=== PATIENT | male | born 1955 | race Caucasian/White ===

== ENCOUNTER 2024-03-13 12:37 | Outpatient (CLI) | payer MEDICARE, SELFPAY ==
[2024-03-13 13:03] LABS: Basophils Percent Auto 0.4 % (0.2-1.2); Eosinophils Absolute Auto 0.2 K/mm3 (0-0.3); Eosinophils Percent Auto 2.1 % (0-4.4); Hematocrit 41.2 % (42.0-52.0); Hemoglobin 13.9 g/dL (14.0-18.0); Immature Granulocyte Absolute 0.06 K/mm3 (0.00-0.031); Immature Granulocyte Percent A 0.8 % (0-0.5); Lymphocytes Absolute Auto 2.08 K/mm3 (0.9-3.2); Lymphocytes Percent Auto 27.6 % (18.3-44.2); Mean Corpuscular HGB Conc 33.7 g/dl (32-36); Mean Corpuscular Hemoglobin 29.6 pg (26-34); Mean Corpuscular Volume 87.7 fl (80-100); Mean Platelet Volume 10.6 fl (7.4-10.4); Monocytes Absolute Auto 0.7 K/mm3 (0.1-0.6); Monocytes Percent Auto 8.9 % (2.6-8.5); Neutrophils Absolute Auto 4.5 K/mm3 (1.3-6.7); Neutrophils Percent Auto 60.2 % (45.5-73.1); Platelet Count Result 170 k/mm3 (150-375); Red Cell Distribution Width 13.5 % (11.5-14.5); White Blood Count 7.5 K/mm3 (4.5-10.0)
[2024-03-13 13:41] LABS: Iron 55 ug/dL (49-181)
[2024-03-13 13:45] LABS: Alanine Aminotransferase 28 U/L (6-50); Albumin Level 4.4 g/dL (3.5-5.1); Alkaline Phosphatase 64 U/L (38-126); Anion Gap 9 mmol/L (4-12); Aspartate Amino Transferase 41 U/L (17-59); Bilirubin,Total 0.8 mg/dL (0.2-1.3); Blood Urea Nitrogen 24 mg/dL (9-20); Calcium 9.5 mg/dL (8.4-10.2); Carbon Dioxide 26 mmol/L (22-30); Chloride 104 mmol/L (98-107); Estimated Glomerular Filt Rate 47; Glucose 104 mg/dL (65-110); Potassium 3.6 mmol/L (3.4-5.0); Sodium 139 mmol/L (137-145)
[2024-03-13 13:51] LABS: Percent Iron Saturation 15 % (20-50)
[2024-03-13 14:51] LABS: Vitamin B12 > 1000.0 pg/mL (239-931)
[2024-03-13 17:45] LABS: Folic Acid > 20.0 ng/mL (2.76->20)
[2024-03-16 13:33] LABS: Kappa\\Lambda Light Chains 1.08 (0.26-1.65); Lambda Light Chain 16.1 mg/L (5.7-26.3)
[2024-03-17 00:13] LABS: Platelet Antibody, Direct NEGATIVE (NEGATIVE)
== END 2024-03-13 12:38 | disposition home or self-care (01) ==
LOC: ANHLAB 12:40
PROVIDERS: Internal Medicine; Visit Provider Internal Medicine Hematology & Oncology
DX: D64.9 Anemia, unspecified (principal); D69.59 Other secondary thrombocytopenia
CPT/HCPCS: 36415; 80053; 82607; 82728; 82746; 83540; 83550; 83883; 84443; 85025; 86023

== ENCOUNTER 2024-04-03 07:13 | Outpatient (CLI) | payer MEDICARE, SELFPAY ==
--- NOTE | ~2024-04-03 | US_ITS ---
COMPLETE ABDOMINAL ULTRASOUND Ordering provider: Margy Cobb MD History: . OTHER SECONDARY THROMBOCYTOPENIA . Comparison: None. FINDINGS: LIVER: Normal size and echotexture. No focal hepatic lesions or perihepatic fluid collections are keon ntified. Normal flow of the portal vein. GALLBLADDER: Status post cholecystectomy. BILIARY DUCTS: No evidence for intra or extrahepatic biliary dilation. Common bile duct measures 5.4 mm in diameter which is within normal limits. PANCREAS: Poorly visualized. SPLEEN: Normal size, echotexture and contour and measures 13.9 cm in length. KIDNEYS: Right measures 11.3x 4.9x 5.1 cm in length and the left 12.6x 5.9x 4.5 cm in length. There i s no evidence for hydronephrosis, solid renal mass, renal calculi or perinephric fluid collections. N o renal cysts. Lobulated outline of the right kidney is noted. Prominent pyramids seen on the left si de. UPPER ABDOMINAL AORTA: Normal in caliber. IVC: Patent. FREE FLUID: None. IMPRESSION: Status post cholecystectomy. Otherwise, Unremarkable complete ultrasound of the abdomen. Reviewed, dictated and finalized at location A. ON PICTURE NARRATOR
== END 2024-04-03 07:14 | disposition home or self-care (01) ==
PROVIDERS: Visit Provider Internal Medicine
DX: Z90.49 Acquired absence of other specified parts of digestive tract (principal); D69.59 Other secondary thrombocytopenia
CPT/HCPCS: 76700

== ENCOUNTER 2025-02-05 11:14 | Outpatient (CLI) | payer MEDICARE, SELFPAY ==
--- OUTSIDE RECORDS SUMMARY | 2025-01-26 03:51 | XMS_ITS | Continuity of Care Document ---
Author Organization [facility] Address [address] [place] [address] Phone Care Team Providers Care Emotional Support Teacher Name Role Phone Sirisha DEE, FACC, Sudhir Unavailable Unavail able Allergies, Adverse Reactions, Alerts Substance Reaction Status Criticality prednisone Unknown(severe) Active No Informati on Medications Medication Instructions Dosage Effective Dates (start - stop) Status Comments ezetimibe 10 mg tablet Take 1 tablet by mouth every day - Active rosuvastatin 20 mg tablet TAKE 1 TABLET BY MOUTH EVERY DAY - Active nitroglycerin 0.[address] 1 tablet by sublingual route at 1st sign of attack; may repeat every 5 minutes up to 3 tabs; if norelief seek medical help 0.4 MG - Active olmesartan 40 mg-hydrochlorothiazide 25 mg tablet - Active tramadol 50 mg tablet TAKE 1 TO 2 TABLETS BY MOUTH WITH OTC TYLENOL 3 TIMES DAILY FOR SEVERE PAIN CONTROL - Active cetirizine 10 mg tablet TAKE 1 TABLET BY MOUTH EVERY DAY - Active isosorbide mononitrate ER 30 mg tablet,extended release 24 hr TAKE 1 TABLET BY MOUTH TWICE A DAY - Active prazosin 2 mg capsule - Acti ve prazosin 5 mg capsule - Acti ve trazodone 50 mg tablet TAKE 1 TABLET BY MOUTH EVERY DAY AT BEDTIME NEEDED FOR 90 DAYS - Active ipratropium 0.5 mg-albuterol 3 mg (2.5 mg base)/3 mL nebulization soln INHALE THE CONTENTS OF 1 VIAL VIA NEBULIZER 4 TIMES A DAY - Active montelukast 10 mg tablet - A ctive diltiazem 30 mg tablet - Act kwame fluoxetine 40 mg capsule TAKE 2 CAPSULES BY MOUTH ONCE DAILY - Active metformin ER 500 mg tablet,extended release 24 hr - Active Jardiance 10 mg tablet TAKE 1 TABLET BY MOUTH EVERY DAY - Active meloxicam 7.5 mg tablet TAKE 2 TABLETS B Y MOUTH X1 DAY, THEN 1 TABLET DAILY FOR PAIN CONTROL - Active methylprednisolone 4 mg tablets in a dose pack TAKE 6 TABLETS ON DAY 1 DIRECTED ON PACKAGE AND DECREASE BY 1 TAB EACH DAY FOR A TOTAL OF 6 DAYS - Active topiramate 25 mg tablet TAKE 1 TABLET BY MOUTH EVERYDAY AT BEDTIME - Active benzonatate 100 mg capsule TAKE 1 CAPSULE BY MOUTH THREE TIMES A DAY NEEDED FOR 15 DAY(S) - Active cefdinir 300 mg capsule - Ac tive levofloxacin 500 mg tablet - Active Breztri Aerosphere 160 mcg-9mcg-4.8mcg/actuatio n HFA aerosol inhaler INHALE 2 PUFFS BY MOUTH TWICE DAILY. BREATH SLOWLY AND DEEPLY - Active furosemide 20 mg tablet - Ac tive albuterol sulfate HFA 90 mcg/actuation aerosol inhaler INHALE 2 PUFFS BY MOUTH SLOWLY AND DEEPLY EVERY 4 HOURS BY MOUTH NEEDED FOR SHORTNESS OF BREATH - Active diltiazem CD 120 mg capsule,extended release 24 hr - Active omeprazole 40 mg capsule,delayed release - Active ezetimibe 10 mg tablet - No Longer Active Procedures Procedure Date REM MNTR PHYSIOL ALIA DEV REM MNTR PHYSIOL ALIA DEV REM PHYSIOL MNTR 20 MIN MO REM PHYSIOL MNTR EA ADDL 20 REM PHYSIOL MNTR 20 MIN MO Not Seen Complex e/m visit add on OFFICE/OUTPATIENT VISIT, EST ELECTROCARDIOGRAM, COMPLETE Advance Directives Directive Yes / No Effective Date File Name No Information Encounters Encounter Description Practice Location Reason(s) For Visit Diagnoses Date Provider Providers Copied on Encounter [facility], [address] [place] [address], [id number] , tel: [phone] SL Donaldson No Information Jan- 5 [facility]. [facility] [address], [place], [place], [id number] , . tel: [phone] [facility], [address] [place] [address], [id number] , tel: [phone] [facility] Donalds[facility] No Information 5 [facility]. [facility] [address], [place], [place], [id number] , . tel: [phone] REM MNTR PHYSIOL ALIA DEV [facility], [address] [place] [address], [id number] , tel: [phone] [facility] Essential (primary) hypertension 5 [facility]. [facility] [address] [place], [id number] , . tel: [phone] Referring Provider: Sudhir [facility]id, [facility], [place], [address] . tel:[phone] sulting Provider: Sudhir Del Cid, [facility], [place], [address] . tel:[phone] REM MNTR PHYSIOL ALIA DEV [facility], [address] [place] [address], [id number] , tel: [phone] [facility] Essential (primary) hypertension 5 [facility]. [address] [place], [place], [id number] , . tel: [phone] Referring Provider: Sudhir Del Cid, [address], [place], [address] . tel:[phone] krishnan Provider: Sudhir Del Cid, [address], [place], [address] . tel:[phone] REM PHYSIOL MNTR EA ADDL 20 [facility], [address] [place], [place], [id number] , tel: [phone] [facility] Essential (primary) hypertension [facility]. [address], [place], [place], [id number] , . tel: [phone] Referring Provider: Sudhir Del Cid, [address], [place], [address] . tel:[phone] krishnan Provider: Sudhir Del Cid, [address] , [place], [address] . tel:[phone] [facility], [address] [place], [place], [id number] , tel: [phone] [facility] No Information [facility]. [address] , [place], [place], [id number] , . tel: [phone] Referring Provider: Miguel Balbuena, [address] [facility], [place], [address]. tel:[phone] OFFICE/OUTPA TIENT VISIT, [facility], [address] [place], [place], [id number] , tel: [phone] [facility] Follow Up of 6 mo (chief complaint) Occlusion and stenosis of bilateral carotid arteriesEssential (primary) hypertensionHyperlipi demia, unspecifiedSleep apnea, unspecifiedShortness of breathCoronary artery spasm [facility]. [address], [place], [place], [id number] , [place]. tel: [phone] Referring Provider: Miguel Balbuena, [address], [place], [address]. tel:[phone] [facility], [address] [place] [address], [id number] , tel: [phone] [facility] No Information [facility]. [address] , [place], [place], [id number] , . tel: [phone] [facility], [address] [place] [address], [id number] , tel: [phone] [facility] CADElevated Lipoprotein(a)Dizzine ssAngina pectoris with documented spasmStenosis of bilateral carotid arteriesEncounter for screening for cardiovascular disordersPanniculitis affecting cervical regions of neck and backShortness of breathArthrodesis statusAbnormal glucoseLocalized edemaEncounter for preprocedural cardiovascular examSleep apneaMigraineOther chest painAnkylosing spondylitis in spineHypertensionHype rlipidemia [facility]. [address] [place], [place], [id number] , . tel: [phone] Family History Family Member Type Diagnosis Age At Onset No Information Payers Payer name Insurance type Covered democrat ID Authoriza tion(s) [place] CI [id number] Social History Type Description Quantity Date Captured Comments Sex Male Smoking Status No Information Chief Complaint And Reason For Visit No Information Reason For Referral Reason For Referral No Information Plan Of Treatment Date Type Action Status Appointment Frank Stevens BOOKED Appointment Frank Stevens BOOKED Future Order: Radiology Order Du plex scan of extracranial arteries; complete bilateral study ([id number]), Ordered on: Ordered History Of Present Illness Encounter Date Complaint History Of Prese nt Illness Follow Up of 6 mo Functional Status Date Functional Assessmen t No Information Instructions Date Instruction Additional Infor mation No Information Assessments Type Assessment Date No Information Patient Care Teams Name Effective Dates (start - stop) Status Members No Information
--- OUTSIDE RECORDS SUMMARY | 2025-02-05 11:17 | XMS_ITS | Patient Health Record ---
Author Organization [facility] Address [address] [place] [address] Care Team Providers Care Box Cutter Name Role Phone Marce Najera Primary Care Provider Allergies No Known Allergies Reason For Referral No Information Medications Medication SIG (Take, Route, Frequency, Duration) Notes Start Date End Date Status Prazosin HCl 5 MG 1 capsule at bedtime Orally Once a day; Duration: 90 days Active Prazosin HCl 2 MG 2 capsule at bedtime Orally Once a day; Duration: 90 days Active Diltiazem CD Active Isosorbide Mononitrate ER 30 MG 1 tablet in the morning Orally Once a day Active FLUoxetine HCl 40 MG 2 capsule Orally On ce a day; Duration: 90 days Active metFORMIN HCl 500 MG 1 tablet with a sariah l Orally Once a day Active traZODone HCl 50 MG 1 tablet at bedtime as needed Orally Once a day; Duration: 90 days Active Social History Tobacco Use: Social History Observation Description Date Details (start date - stop date) Never Smoker NA - NA Sex Assigned At : Social History Observation Description Sex Assigned At Male Tobacco Control (Standard) Question Answer Notes Tobacco use: Nonsmoker Problems Problem Type SNOMED Code ICD Code Onset Dates Problem Status W/U Status Risk Notes Problem Posttraumatic stress disorder (98931320) PTSD (post-traum atic stress disorder) (F43.10) Active confirmed Encounters Encounter Location Date Provider Diagnosis [facility] [address] [facility] [place] [address] 03/12/2024 Marce Najera PTSD (post-traumatic stress disorder) F43.10 [facility] [address] [place] [address] 06/11/2024 Marce Najera PTSD (post-traumatic stress disorder) F43.10 [facility] [address] [place] [address] 09/03/2024 Marce Najera PTSD (post-traumatic stress disorder) F43.[address] [place] [address] 12/04/2024 Marce Najera PTSD (post-traumatic stress disorder) F43.[address] [place] [address] 02/28/2024 Marce Najera PTSD (post-traumatic stress disorder) F43.10 Assessments Encounter Date Diagnosis (ICD Code) Assessment Notes Treatment Notes Treatment Clinical Notes Section Notes 02/28/2024 PTSD (post-traumati c stress disorder) (ICD-10 - F43.10) 03/12/2024 PTSD (post-traumati c stress disorder) (ICD-10 - F43.10) Continue current medications. Continue services as scheduled. Labs completed recently. May self-administer medications or be administered own oral medications per [facility] protocols. Provided informed consent with understanding of side effects, adverse effects, risks and benefits as well as alternative treatments as previously discussed and with the above recommended medications & other aspects of the treatment program. Agrees to return sooner if symptoms worsen or suicidal or homicidal ideations occur. 06/11/2024 PTSD (post-traumati c stress disorder) (ICD-10 - F43.10) Continue current medications. Continue services as scheduled. Labs completed recently. May self-administer medications or be administered own oral medications per [facility] protocols. Provided informed consent with understanding of side effects, adverse effects, risks and benefits as well as alternative treatments as previously discussed and with the above recommended medications & other aspects of the treatment program. Agrees to return sooner if symptoms worsen or suicidal or homicidal ideations occur. 09/03/2024 PTSD (post-traumati c stress disorder) (ICD-10 - F43.10) Continue current medications. Continue services as scheduled. Labs completed recently. May self-administer medications or be administered own oral medications per [facility] protocols. Provided informed consent with understanding of side effects, adverse effects, risks and benefits as well as alternative treatments as previously discussed and with the above recommended medications & other aspects of the treatment program. Agrees to return sooner if symptoms worsen or suicidal or homicidal ideations occur. 12/04/2024 PTSD (post-traumati c stress disorder) (ICD-10 - F43.10) Continue current medications. Continue services as scheduled. Labs completed recently. May self-administer medications or be administered own oral medications per [facility] protocols. Provided informed consent with understanding of side effects, adverse effects, risks and benefits as well as alternative treatments as previously discussed and with the above recommended medications & other aspects of the treatment program. Agrees to return sooner if symptoms worsen or suicidal or homicidal ideations occur. Plan Of Treatment No Information Insurance Providers Payer Name Payer Address Payer Phone Subscriber Number Group Number Insured Name Patient Relationship to Insured Coverage Start Date Coverage End Date MEDICARE PART A [address] [place] [address] [id number] Frank Stevens Self - patient is the insured 6 4 MEDICARE PART A [address] [place] [address] [id number] Frank Stevens Self - patient is the insured 4 [employer] [address] [place] [address] [id number] Frank Stevens Self - patient is the insured 1 [facility] [address] [place] [address] [id number] Frank Stevens Self - patient is the insured 1 1 Medical (General) History Medical History History ICD Code coronary artery spasm Sleep apnea Pneumonia following surgery- 2022- resol meenu Mcdonald Jun 2023 Surgical History Surgery Date(Month/Year) Neck- vertebrae fusion c4-6 07/2022
--- OUTSIDE RECORDS SUMMARY | 2025-02-05 11:17 | XMS_ITS | Encounter Summary ---
Author Organization [facility] Address [address] [place] [address] Phone Care Team Providers Care Critical Care Clinical Nurse Specialist Name Role Phone Miguel Balbuena MD Primary Care Provider [phone] Don Barrios MD Primary Care Provider [phone] Sudhir Grimm MD Unavailable [phone] Miguel Balbuena MD Primary Care Provider [phone] Encounter Details Date Type Department Care Team (Late st Contact Info) Description 05/18/2019 Orders Only [facility] Scanning, Provider Social History Tobacco Use Types Packs/Day Years Used Date Smoking Tobacco: Some Days Cigars Smokeless Tobacco: Never Comments:cigar smoker 3-4 ti mes per year Alcohol Use Standard Drinks/Week Comments Yes 0 (1 standard drink = 0.6 oz pur e alcohol) Occasionally 1- 2 per month PHQ-2 Answer Date Recorded PHQ-2 Score 6 12/24/2018 Sex and Gender Information Value Date Recorded Sex Assigned at Not on file Legal Sex Male 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[employer] Gender Identity Not on file Sexual Orientation Not on file Occupation Industry Job Start Date Job End Date Retired Not on file Not on file Not on file documented as of this encounter Plan of Treatment Not on file documented as of this encounter Procedures Procedure Name Priority Date/Time Associated Diagnosis Comments SCAN - RADIOLOGY/IMAGING 05/18/2019 documented in this encounter Results * SCAN - RADIOLOGY/IMAGING (05/18/2019) Anatomical Region Laterality Modality Other us Provider Scanning Final Result documented in this encounter Visit Diagnoses Not on filedocumented in this encounter Care Teams Critical Care Clinical Nurse Specialist Relationship Specialty Start Date End Date Miguel Balbuena MD [address] [place] [address] PCP - General Family Medicine 10/23/18 05/25/19 Don Barrios MD [address] [place] [address] PCP - General Family Medicine 05/26/19 03/20/23 Miguel Balbuena MD [address] [place] [address] PCP - General Family Medicine 03/21/23 Sudhir Grimm MD [address] [place] [address] Consulting Physician Cardiovascular Disease 01/30/22 documented as of this encounter
--- OUTSIDE RECORDS SUMMARY | 2025-02-05 11:17 | XMS_ITS | Encounter Summary ---
Author Organization [facility] Address [address] [place] [address] Phone Care Team Providers Care Abstract Manager Name Role Phone Don Barrios MD Primary Care Provider [phone] Sudhir Grimm MD Unavailable [phone] Miguel Balbuena MD Primary Care Provider [phone] Encounter Details Date Type Department Care Team (Late st Contact Info) Description 11/26/2022 Orders Only [facility] Scanning, Provider Social History Tobacco Use Types Packs/Day Years Used Date Smoking Tobacco: Former Cigars Smokeless Tobacco: Never Comments:cigar smoker 3-4 ti mes per year Alcohol Use Standard Drinks/Week Comments Yes 0 (1 standard drink = 0.6 oz pur e alcohol) occasionally AUDIT-C Answer Date Recorded Q1: How often do you have a drink containing alc ohol? 2-4 times a month 06/01/2022 Q2: How many drinks containi ng alcohol do you have on a typical day when you are drinking? 1 or 2 06/01/2022 Q3: How often do you have si x or more drinks on one occasion? Never 06/01/2022 PHQ-2 Answer Date Recorded PHQ-2 Score 2 05/26/2019 Personal Safety Answer Date Recorded Have you ever been in or are you currently in a harmful physical or emotional relationship or is someone making you feel afraid or unsafe? Denies 10/07/2022 Sex and Gender Information Value Date Recorded Sex Assigned at Not on file Legal Sex Male 9:15 PM [employer] Gender Identity Not on file Sexual Orientation Not on file Occupation Industry Job Start Date Job End Date Retired Not on file Not on file Not on file documented as of this encounter Plan of Treatment Not on file documented as of this encounter Procedures Procedure Name Priority Date/Time Associated Diagnosis Comments SCAN - RADIOLOGY/IMAGING 11/26/2022 documented in this encounter Results * SCAN - RADIOLOGY/IMAGING (11/26/2022) Anatomical Region Laterality Modality Other us Provider Scanning Edited Result - Final documented in this encounter Visit Diagnoses Not on filedocumented in this encounter Care Teams Abstract Manager Relationship Specialty Start Date End Date Don Barrios MD [address] [place] [address] PCP - General Family Medicine 05/26/19 03/20/23 Miguel Balbuena MD [address] [place] [address] PCP - General Family Medicine 03/21/23 Sudhir Grimm MD [address] [address] Consulting Physician Cardiovascular Disease 01/30/22 documented as of this encounter
--- OUTSIDE RECORDS SUMMARY | 2025-02-05 11:17 | XMS_ITS | Clinical Summary ---
Author Organization [facility] C Address [address] [place] [address] Care Team Providers Care Supervisor Cabinetmaker Name Role Phone Sudhir Grimm MD Unavailable [phone] Miguel Balbuena MD Primary Care Provider [phone] Allergies Active Allergy Reactions Criticality Noted Date Comments Azithromycin Unknown Low 12/13/2022 Patient listed at outside facility as having allergy to azithromycin, however pt themselves does not recall any history of this on interview 12/13/22 Medications traZODone (DESYREL) 50 mg tablet Take 1 tablet (50 mg total) by mouth nightly Active furosemide (LASIX) 20 mg tablet Take 1 tablet (20 mg total) by mouth every other day Active albuterol HFA (PROVENTIL HFA,VENTOLIN HFA,PROAIR HFA) 90 mcg/actuation inhaler Inhale 2 puffs 2 (two) times a day Active olmesartan-hydro chlorothiazide (BENICAR HCT) 40-25 mg per tablet Take 0.5 tablets by mouth nightly Active diphenhydrAMINE (BENADRYL) 25 mg capsule Take 1 tablet/capsule (25 mg total) by mouth every 6 (six) hours as needed for itching Active gvysj-0-jbp-epa- dpa-fish oil 1,050-1,200 mg capsule Take 1 capsule by mouth 2 (two) times a day Active levomefolate calcium (DEPLIN) 7.5 mg tablet Take 1 tablet (7.5 mg total) by mouth helmet hat puncher before breakfast Active aspirin 81 mg chewable tablet 1 tablet (81 mg total) Every other day Active rosuvastatin (CRESTOR) 20 mg tablet Take 1 tablet (20 mg total) by mouth nightly 1 Active kvvg-acxowfm-P-E -R53-prmw-kned 150 mg iron-1 mg-500 mg tablet Take 1 tablet by mouth daily Active niacin 250 mg tablet Take 1 tablet (250 mg total) by mouth nightly Active SUMAtriptan (IMITREX) 100 mg tablet Take 1 tablet (100 mg total) by mouth once as needed 2 Active prazosin (MINIPRESS) 5 mg capsule Take 1 capsule (5 mg total) by mouth nightly 2 Active prazosin (MINIPRESS) 2 mg capsule Take 2 capsules (4 mg total) by mouth nightly 2 Active ezetimibe (ZETIA) 10 mg tablet Take 1 tablet (10 mg total) by mouth daily 90 tablet 4 2 Active dilTIAZem CD/XR/XT (CARDIZEM CD,DILACOR XR) 120 mg 24 hr capsule Take 1 capsule (120 mg total) by mouth nightly Active isosorbide mononitrate ER (IMDUR) 30 mg 24 hr tablet Take 1 tablet (30 mg total) by mouth 2 (two) times a day Active nitroglycerin (NITROSTAT) 0.[address] 1 tablet (0.4 mg total) under the tongue every 5 (five) minutes as needed for chest pain Active FLUoxetine (PROzac) 40 mg capsule Take 2 capsules (80 mg total) by mouth daily Active fluticasone-umec lidin-vilanter (Trelegy Ellipta) 200-62.5-25 mcg inhaler Inhale 1 puff daily Active cholecalciferol (VITAMIN D-3) 2000 unit capsule Take 1 capsule (2,000 Units total) by mouth daily Active multivitamin capsule Take 1 capsule by mouth daily Active fluticasone propionate (FLONASE) 50 mcg/actuation nasal spray Administer 1 spray into each nostril daily Active acetaminophen 500 mg capsuleIndicatio ns:Pain Take 2 capsules (1,000 mg total) by mouth every 6 (six) hours 30 tablet 3 Active azithromycin (Zithromax Z-Jorge Luis) 250 mg tablet Take 1 tablet (250 mg total) by mouth daily Take first 2 tablets together, then 1 every day until finished. 6 tablet 3 Active albuterol HFA (PROVENTIL HFA,VENTOLIN HFA,PROAIR HFA) 90 mcg/actuation inhaler Inhale 2 puffs every 4 (four) hours as needed for wheezing 6.7 g 3 Active Active Problems Problem Noted Date Diagnosed Date Recurrent lower respiratory tract infection 12/04 Assessment & Plan (03/22/2023 11:49 AM BLOWN FILM EXTRUSION OPERATOR): -Patient presented today for follow up. Since last visit he has not had any episodes of suspected pneumonia. -We reviewed outside records that were faxed over to us. Based on x-rays and CT imaging we were sent, it does not seem as the patient had true pneumonia episodes but more asthma exacerbations from viral or non-infectious pathogens -No current need seen for antibiotics at this time. -As these are non-infiltrate associated symptoms, likely not much to be done as unlikely true PNA and more likely non-infectious or viral exacerbations of chronic pulmonary disease, so management should be focused on better control of that disease. -We asked the patient and his to reach out with any future antibiotic needs as we will be happy to help. Assessment & Plan (12/13/2022 4:09 PM CDT): 67 y.o. male with PMH of ankylosing spondylitis on a TNF-alpha inhibitor since August 2021, asthma, cervical disc disorder, laryngopharyngeal reflux, coronary artery spasms, and diabetes. Has been having recurrent episodes of increased SOB/dry cough/weakness since being hospitalized with Moderate/severe COVID-19 PNA in Apr 2020 (required O2 but not intubation), about 3+ episodes/year. Unclear if actually PNA or possibly other acute respiratory issues like bronchitis/COPD exacerbation with the exception of a post-surgical PNA in Jun 2022. Has not had a repeated episode since that time, possibly associated with some changes to patient's respiratory controller meds. Reportedly also had persistent leukocytosis, however most recent CBC in our system does not demonstrate this. From the patient's described history, I suspect this patient likely is not actually having true recurrent PNA, but instead recurrent episodes of exacerbations of chronic respiratory disease such as asthma or COPD, possibly with atypical response due to repeated exposure to steroids and his ongoing TNF alpha inhibitor infusions. However, our lack of access to the documentation and testing results makes this unable to be confirmed. Currently without any symptoms/physical findings consistent with active respiratory infection. Plan: -Have requested Chest imaging results to be faxed over from the patient's primary care location ([facility] in [facility] [phone]), [facility] in [facility] ([phone]). Last clinic note from patient's pulmonary doctor (Pamela Coto MD [phone]). Will review to confirm if pt actually had infiltrates during these symptom exacerbations, and if he did whether they are largely in the same place or multi-focal. -No current need seen for antibiotics at this time. -If these are non-infiltrate associated symptoms, likely not much to be done as unlikely true PNA and more likely non-infectious or viral exacerbations of chronic pulmonary disease, so management should be focused on better control of that disease. -If infiltrate-associated and with a repeated focus of infection, may need evaluation for atypical pathogens such as fungal organisms. If multifocal may need to evaluate for appropriate management. -Given reported referral for leukocytosis, will get repeat CBC/CMP today. However CBC from 10/2022 had normal WBC count, so suspect it was just either reactive or steroid induced leukocytosis as it appears to have resolved. -F/u planned for 3 months from now, however I plan to review received records next week and update the patient on my assessment and recommendations based on that information. If non-infectious/viral etiologies are likely, patient likely will not need followup as no additional interventions on the ID side are likely. Cervical disc disorder 06/15/2022 Cervical disc disorder with myelopathy of wyooizvp-ftuoxqh-aploy region 05/15/2022 Overview (05/15/2022): Added automatically from request for surgery [id number] Cervical disc disorder with radiculopathy of cervical region 04/02/2022 Assessment & Plan (04/02/2022 10:39 AM BLOWN FILM EXTRUSION OPERATOR): My Stevens has symptoms of cervical radiculopathy and evidence of possible cervical myelopathy. Patient has right upper extremity radiculopathy without any weakness. His exam demonstrates some evidence of cervical myelopathy to include feeling off balanced, brisk reflexes, upward going toes. Patient states he had DISH previously. Will review MRI of the cervical spine with Dr. Monreo to further formulate a plan of care. Patient is not interested in pursuing injections or physical therapy at this time and is looking for a surgical approach if offered. In the interim I will have the patient use a Medrol Dosepak and change his muscle relaxant to tizanidine 4 milligrams every 8 hours as needed for comfort. Explained to the patient we do not order pain medications until they are postop. Will download the MRI CD into [employer] and mail the CD back to the patient. Unstable angina 01/28/2022 Status post cervical spinal fusion 12/23/2019 Assessment & Plan (07/18/2022 10:05 AM CDT): PLAN: - Explained if the swallowing and choking worsen, we may refer to ENT for further evaluation. However, patient is under treatment for pneumonia and some of his symptoms could be contributory. He is able to eat certain foods and drinks liquids without issues, would continue to observe this at time time. -Continue activity restrictions as outlined prior to surgery. May increase activity as tolerated but no weight lifting more than 10 lbs. - Discontinue Keatchie Collar. Use soft collar prn for comfort. - After 6 weeks, patient may resume NSAIDs, may increase activity as tolerated. WORK STATUS: - RETIRED FOLLOW UP APPT: With Dr. Monroe in 6 weeks with Flexion/Extension Cervical spine films. Assessment & Plan (07/12/2021 11:49 AM BLOWN FILM EXTRUSION OPERATOR): Mr. Stevens is clinically doing well after both his anterior cervical decompression and fusion and his L4-5 decompression and fusion. He denies any neck, arm, back or leg symptoms. He is very pleased with his results and his resumed all of his normal activities. We will not set up a scheduled appointment, but I would be happy to see him back at any point on as-needed basis. Assessment & Plan (03/28/2020 2:01 PM BLOWN FILM EXTRUSION OPERATOR): Mr. Stevens has decreased range of motion after posterior lumbar decompression and fusion. He has some left SI tenderness with right hip decreased range of motion. Will start him on physical therapy via Dr. Charly Linda at [facility]. He is to return mid-June with Dr. Rothman with AP/Flex/Extension Lumbar spine films at that time. Assessment & Plan (12/23/2019 2:39 PM CDT): Mr. Stevens is doing extremely well after posterior lumbar decompression and fusion with resolution of his preoperative symptoms. His wound is completely healed any denies any significant back or leg symptoms. I plan to see him back in four and half months with flexion-extension lumbar spine films at that time. Status post neck surgery, follow-up exam 020 Assessment & Plan (07/12/2020 3:03 PM BLOWN FILM EXTRUSION OPERATOR): Mr. Stevens is status post L4-5 decompression fusion with relief of his leg symptoms. He reports he is much more active than he was prior to surgery. He has had some recurrent low back pain and has symptoms of piriformis syndrome bilaterally. I have shown him some stretches to do at home. We will give him a script for Zanaflex and have asked him to follow-up with his primary doctor possibly renewing prescription NSAIDs that he was taking prior to the operation. I will see him back in 1 year's time with AP and lateral lumbar spine films at that time. Assessment & Plan (12/23/2019 2:40 PM CDT): Mr. Stevens is clinically doing well after removal of anterior osteophytes from C3-C7. He has had resolution of his difficulty swallowing. He had some pain in the C5 distribution and has bony foraminal stenosis seen on today's x-rays. He, however, is asymptomatic from this up. We will follow this conservatively over time. Assessment & Plan (05/26/2019 2:25 PM BLOWN FILM EXTRUSION OPERATOR): Mr. Stevens Is doing great from removal of anterior osteophytes from C3-C6. He has had marked improvement in his swallowing. He has no complaints referable to his neck. Neck pain 11/12/2018 Assessment & Plan (10/13/2019 1:13 PM CDT): Mr. Stevens has new neck and right shoulder pain. This initially respond to a course of physical therapy but has recurred. He does not have any jeana radiculopathy. He does show signs of myelopathy with decreased dexterity in his hands and balance issues. We will get a new MRI of the cervical spine to evaluate for any spinal cord compression. We will get flexion-extension films to look for any instability given the removal of the anterior osteophytes that were bridging from C3 to C6. We discussed that if he has significant cervical stenosis, this would need to be taken care before his lumbar issues. He and his expressed understanding. Assessment & Plan (02/11/2019 11:03 AM CDT): PLAN: 1. Increase activity as tolerated. No specific restrictions other than no lifting greater than 50-60 lb overall 2. Referral to rheumatology for evaluation of generalized arthritis. WORK STATUS: 1. Retired FOLLOW UP APPT: As needed. Assessment & Plan (11/12/2018 12:54 PM CDT): Mr. Stevens has a complex problem. His primary complaint is of neck pain. He also has severe difficulty swallowing. The MRI of the cervical spine does not show any significant cord impingement. It shows some multilevel foraminal stenosis. There are large anterior osteophytes and a bony mass that extends from C3-T1 and is difficult to visualize on the MRI. He reports that he has had previous plain films that have shown this. We will get a CT of the cervical spine to better evaluate this and will get flexion-extension cervical spine films to look for any instability. I discussed with the patient and his that the neck pain may be due to the anterior massive bone, but this is difficult to know. His swallowing difficulties may also be related to this. We discussed that with removal of this anterior mass, he may or may not have improvement in any of his symptoms. I plan to see him back in 6 weeks for re-evaluation. I will review the literature in the interim. We will give him a Medrol Dosepak that may help significantly with his symptoms in the short-term. Resolved Problems Problem Noted Date Diagnosed Date Resolved Date Neurogenic claudication due to lumbar spinal stenosis 10/15/2019 12/23/2019 Overview (10/15/2019): Added automatically from request for surgery [id number] Lumbar stenosis with neurogenic claudication 0 12/23/2019 Assessment & Plan (10/13/2019 1:12 PM CDT): Mr. Stevens has lumbar stenosis with neurogenic claudication and severe foraminal stenosis at L4-5 on the right. We discussed that his hip issues are likely separate. The proximal buttock and back pain are likely related to the L4-5 level. We again discussed the options of injections which he does not wish to proceed with. He wishes to proceed with surgery which would be in the form of L4-5 laminectomy and fusion with a right Naranjo procedure to completely decompress the exiting right L4 nerve root. Assessment & Plan (05/26/2019 4:07 PM BLOWN FILM EXTRUSION OPERATOR): Mr. Stevens has lumbar stenosis with neurogenic claudication. We will refer him to pain management for epidural steroid injections. If at any point if his symptoms become intolerable, it would be reasonable to perform an L4-5 laminectomy and fusion with Naranjo procedure on the right at L4-5. I plan to see him back in four months for re-evaluation. I will get AP and flexion-extension lumbar spine films at follow- up Dysphagia 12/12/2018 05/26/2019 Overview (12/12/2018): Added automatically from request for surgery [id number] Immunizations Immunization Administration Dates Next Due Influenza, Unspecified 03/05/2022 Surgical History Surgery Date Site/Laterality Comments HEMORRHOID SURGERY CATARACT EXTRACTION, BILATERAL SEPTOPLASTY LAPAROSCOPIC CHOLECYSTECTOMY SHOULDER ARTHROSCOPY Bilateral CERVICAL LAMINECTOMY 12/04/2018 - 01/03/2019 C3-6 - removal of anterior osteophyte - no hardware (Stephan) POSTERIOR FUSION LUMBAR SPINE 11/04/2019 - 12/04/2019 L4-5 Posterior Spinal Fusion (Stephan) TOE SURGERY 05/06/2020 - 05/05/2021 Right Medical History Medical History Date Comments Hypertension Obstructive sleep apnea wendy chandan with bilevel positive airway pressure (BiPAP) PTSD (post-traumatic stress disorder) Obesity (BMI 35.0-39.9 without comorbidity) BMI 35 Anxiety and depression Migraines Asthma Neurogenic claudication due to lumbar spinal stenosis Dyslipidemia Osteoarthritis Restrictive lung disease Cardiac abnormality Coronary art jonathan spasms - managed with meds Ankylosing spondylitis Cervical disc disorder with myelopathy of ywwxxxvb-wqxmtec-zpqeg region Coronary artery spasm Diabetes type 2, controlled Family History Medical History Relation Name Comments Heart disease Father Hypertension Father Colon cancer Mother Relation Name Status Comments Father Mother Social History Tobacco Use Types Packs/Day Years Used Date Smoking Tobacco: Former Cigars Smokeless Tobacco: Never Tobacco Cessation:Counseling Given: Not Answered Comments:cigar smoker 3-4 times per year Alcohol Use Standard Drinks/Week Comments Yes 0 (1 standard drink = 0.6 oz pur e alcohol) occasionally AUDIT-C Answer Date Recorded Q1: How often do you have a drink containing alc ohol? Monthly or less 12/13/2022 Q2: How many drinks containi ng alcohol do you have on a typical day when you are drinking? 1 or 2 12/13/2022 Q3: How often do you have si x or more drinks on one occasion? Never 12/13/2022 PHQ-2 Answer Date Recorded PHQ-2 Score 2 05/26/2019 Personal Safety Answer Date Recorded Getting School Help Needed Not on file 10/24 Sex and Gender Information Value Date Recorded Sex Assigned at Not on file Legal Sex Male 9:15 PM BLOWN FILM EXTRUSION OPERATOR Gender Identity Not on file Sexual Orientation Not on file Occupation Industry Job Start Date Job End Date Retired Not on file Not on file Not on file Obstetrics History Last Filed Vital Signs Vital Sign Reading Time Taken Comments Blood Pressure 121/72 02/18/2024 2:30 PM CDT Pulse 61 02/18/2024 2:30 PM CDT Temperature 36.8 C (98.2 F) 03/21/2023 9:40 AM BLOWN FILM EXTRUSION OPERATOR Respiratory Rate 16 02/18/2024 2:30 PM CDT Oxygen Saturation 97% 02/18/2024 2:30 PM CDT Inhaled Oxygen Concentration - - Weight 109.8 kg (242 lb) 02/18/2024 2:30 PM CDT Height 177.8 cm (5' 10) 02/18/2024 2:30 PM CDT Body Mass Index 34.72 02/18/2024 2:30 PM CDT Plan of Treatment Health Maintenance Due Date Last Done Comments Colon Cancer Screening-Colonoscopy 1955 Hepatitis C Screening 1957 Prostate Cancer Screening-PSA 1957 DTaP/Tdap/Td Vaccine (1 - Tdap) 1968 Hepatitis B Screening 1975 Pneumococcal vaccine 65+ (1 of 2 - PCV) 1976 Zoster Vaccine (1 of 2) 2007 Depression Screening 05/26/2020 05/26/2019, 05/26/2019, 11/12/2018 Abdominal Aortic Aneurysm (A AA) Screen 2022 Well Visit 65+ 2022 Fall Risk Assessment 06/17/2023 06/17/2022 Influenza Vaccine (#1) 2025 2, 01/19/2020, 01/23/2019, Additional history exists Medical Devices Implanted Type Area Hotel Service Supervisor Device Identifier Shelf Expiration Date Model / Serial / Lot [employer] [id number] Inqu Paste Mix Plus Instantizer Operator 10cc Bone Graft Hyaluronic Acid Poly - [id number] Implanted:Qty: 1 on 11/09/2019 by Marlon Rothman MD at [facility] N/A: Back [employer] 03/25/2021 [id number] / / [id number] Core Link [id number] [place] 7mm 40mm Spine Pedicle Screw Bone Nonsterile 5500 Series - [id number] Implanted:Qty: 4 on 11/09/2019 by Marlon Rothman MD at [facility] N/A: Back [employer] Link [id number] / / Core Link [id number] [place] Screw Set 5500 Series - [id number] Implanted:Qty: 4 on 11/09/2019 by Marlon Rothman MD at [facility] N/A: Back [employer] [id number] / / Core Link [id number] [place] 5.5mm 45mm Line Prebent Chi Spinal Nonsterile 5500 Series - [id number] Implanted:Qty: 2 on 11/09/2019 by Marlon Rothman MD at [facility] N/A: Back [employer] Link [id number] / / Smaato Jono Angio-Seal Vip 6fr Closere Device [id number] - [id number] Implanted:Qty: 1 on 01/28/2022 by Sudhir Grimm MD at [facility] 10/03/2022 [id number] / / [id number] [employer] [id number] Interbody Cervical Allograft [id number] 7deg Puros-S2 - [id number] - [id number] Implanted:Qty: 1 on 06/15/2022 by Rodger Monroe MD at [facility] N/A: Spine Cervical [employer] 10/03/2024 [id number] / [id number] / [id number] [employer] 4mm 16mm Fix Screw Bone [id number] - [id number] Implanted:Qty: 6 on 06/15/2022 by Rodger Monroe MD at [facility] N/A: Spine Cervical [employer] [id number] / / [employer] C-Clifton Maxan 30mm Level 2 Fix Spine Cervical Anterior Plate Bone [id number] - [id number] Implanted:Qty: 1 on 06/15/2022 by Rodger Monroe MD at [facility] N/A: Spine Cervical [employer] [id number] / / [employer] [id number] Interbody Cervical Allograft [id number] 7deg Puros-S2 - [id number] Implanted:Qty: 1 on 06/15/2022 by Rodger Monroe MD at [facility] N/A: Spine Cervical [employer] 04/04/2024 [id number]. [id number] / / [id number] Insurance MEDICARE MEDICARE [employer] MEDICARE SUPPLEMENT INSURANCE [facility] MEDICARE MEDICARE [facility] MEDICARE SUPPLEMENT INSURANCE MEDICARE [facility] MEDICARE SUPPLEMENT INSURANCE Advance Directives For more information, please contact: [phone] Documents on File Type Date Recorded Patient Nutritional Services Host Expl anation ADVANCE DIRECTIVE 12/09/2019 2:22 PM ADVANCE DIRECTIVE 01/01/2019 5:19 AM * Full Code (Latest Code Status on File) Date Activated Date Inactivated Comments 06/15/2022 7:37 PM 06/17/2022 2:17 PM * Full Code Date Activated Date Inactivated Comments 01/28/2022 7:47 PM 01/30/2022 3:31 PM * Full Code Date Activated Date Inactivated Comments 11/09/2019 11:21 AM 11/11/2019 3:10 PM * Full Code Date Activated Date Inactivated Comments 01/01/2019 12:00 PM 01/02/2019 3:29 PM Care Teams Supervisor Cabinetmaker Relationship Specialty Start Date End Date Miguel Balbuena MD [address] [place] [address] PCP - General Family Medicine 03/21/23 Sudhir Grimm MD [address] [place] [address] Consulting Physician Cardiovascular Disease 01/30/22
--- OUTSIDE RECORDS SUMMARY | 2025-02-05 11:18 | XMS_ITS | Clinical Summary ---
Author Organization [facility] Address [address] [address] Phone Care Team Providers Care Cinnamon Grinder Name Role Phone Miguel Balbuena MD Primary Care Provider [phone] Social History Tobacco Use Types Packs/Day Years Used Date Smoking Tobacco: Never Assessed Sex and Gender Information Value Date Recorded Sex Assigned at Not on file Legal Sex Male 10:56 PM CDT Gender Identity Not on file Sexual Orientation Not on file Plan of Treatment Health Maintenance Due Date Last Done Comments Hepatitis C Virus (HCV) Screening 1955 TdaP Immunization 1957 Cologuard 2002 Colonoscopy 2002 Colorectal Cancer Screening 2002 Immunochemical Fecal Occult Blood 2002 Pneumococcal Immunization (5 0+ years) (1 of 1 - PCV) 2007 Zoster Immunization (1 of 2) 2007 Influenza Immunization (#1) 2025 SARS-COV-2 Immunization ( - season) 2025 Respiratory Syncytial Virus (RSV) Immunization (Adult) (1 - 1-dose 75+ series) 2032 Hepatitis B Immunization Aged Out No longer eligible based on patient's age to complete this topic Human Papillomavirus (HPV) Immunization Aged Out No longer eligible b ased on patient's age to complete this topic Meningococcal Immunization (ACWY) Aged Out No longer eligible based on patient's age to complete this topic Rotavirus Immunization Aged Out No lo nger eligible based on patient's age to complete this topic Insurance [facility] Care Teams Cinnamon Grinder Relationship Specialty Start Date End Date Miguel Balbuena MD [address] [place] [address] PCP - General Head Coach 05/26/18
--- OUTSIDE RECORDS SUMMARY | 2025-02-05 11:18 | XMS_ITS | Clinical Summary ---
Author Organization [facility] Tony Holland Address [address] [place] [address] Care Team Providers Care Sheep Or Calf Grader Name Role Phone Miguel Balbuena MD Primary Care Provider [phone] Allergies No known active allergies Medications diltiaZEM (CARDIZEM LA) 120 mg Extended Release 24 hour tablet Take 120 mg by mouth daily. 3 Active isosorbide mononitrate (IMDUR) 30 mg Extended Release 24 hour tablet Take 30 mg by mouth 2 times daily. 3 Active olmesartan-hydro CHLOROthiazide (BENICAR-HCT) 40-25 mg tablet Take 1 Tablet by mouth daily in the morning. Active nitroglycerin (NITROSTAT) 0.4 mg Tablet, Sublingual Place 0.4 mg under tongue every 5 minutes as needed for Chest Pain. Active metFORMIN (GLUCOPHAGE) 500 mg tablet Take 500 mg by mouth 2 times daily with meals. Active prazosin (MINIPRESS) 2 mg capsule Take 2 mg by mouth daily at bedtime. Active traZODone (DESYREL) 50 mg tablet Take 50 mg by mouth daily at bedtime. Active furosemide (LASIX) 20 mg tablet Take 20 mg by mouth daily. Active FLUoxetine (PROzac) 40 mg capsule Take 40 mg by mouth daily. Active rosuvastatin (CRESTOR) 20 mg tablet Take 20 mg by mouth daily. Active Breztri Aerosphere 160 mcg-9mcg-4.8mcg/ actuation HFA aerosol inhaler Take 2 Puffs by inhalation 2 times daily. Active albuterol sulfate HFA 90 mcg/actuation aerosol inhaler Take 2 Puffs by inhalation every 6 hours as needed for Shortness of Breath. Active ezetimibe (ZETIA) 10 mg tablet Take 10 mg by mouth daily. Active traMADoL (ULTRAM) 50 mg tablet Take 50 mg by mouth every 6 hours as needed for Pain. Active meloxicam (MOBIC) 7.5 mg tablet Take 7.5 mg by mouth daily. Active topiramate (TOPAMAX) 25 mg capsule Take 25 mg by mouth every 12 hours. Active cetirizine (ZyrTEC) 10 mg tablet Take 10 mg by mouth daily. Active omeprazole (PriLOSEC) 40 mg Capsule, Delayed Release(E.C.) Take 40 mg by mouth daily. Active OMEGA-3 FATTY ACIDS-FISH OIL ORAL Take 1 Capsule by mouth 2 times daily. Active L-Methylfolate 7.5 mg Tablet Take 7.5 mg by mouth daily. Active G76-LMKMVAUBGLMD YDROFOLATE-B6 ORAL Take by mouth daily. Active guaifen/phenylep h/acetaminophn (MUCINEX COLD AND SINUS ORAL) Take by mouth daily. Active aspirin (LAURA CHEWABLE) 81 mg Tablet, Chewable 81 mg. Act kwame Cholecalciferol, Vitamin D3, 50 mcg (2,000 unit) Capsule Take 2,000 Units by mouth daily. Active diphenhydrAMINE (BENADRYL) 25 mg capsule Take 25 mg by mouth. Active DOCOSAHEXAENOIC ACID ORAL Take 1 Capsule by mouth 2 times daily. Active fluticasone-umec lidinium-vilante rol (Trelegy Ellipta) 200-62.5-25 mcg Disk with Device Take 1 Puff by inhalation daily. Active meclizine (ANTIVERT) 25 mg tablet TAKE 1 TABLET BY MOUTH 4 TIMES DAILY NEEDED 2 Active Active Problems No known active problems Encounters Date Type Department Care Team Description 02/04/2025 Telephone [facility] Oncology and Hematology - [place] [address] [place] [address] Aman Dowling MD labs for appt 01/12/2025 External Device Data STL ABSTRACTION Provider, Abstract 11/24/2024 External Device Data STL ABSTRACTION Provider, Abstract from Last 3 Months Family History Medical History Relation Name Comments No Known Problems Child 1 No Known Problems Child 2 Heart Disease Father Colon Cancer Mother No Known Problems Sister 1 No Known Problems Sister 2 Relation Name Status Comments Child 1 Alive Child 2 Alive Father Mother Sister 1 Alive Sister 2 Alive Social History Tobacco Use Types Packs/Day Years Used Date Smoking Tobacco: Never Tobacco Cessation:Counseling Given: Not Answered Alcohol Use Standard Drinks/Week Comments Not Asked 0 (1 standard drink = 0.6 oz pure alcohol) Ocasionally once a month a couple drinks Sex and Gender Information Value Date Recorded Sex Assigned at Not on file Legal Sex Male 11:38 AM CDT Gender Identity Not on file Sexual Orientation Not on file Last Filed Vital Signs Vital Sign Reading Time Taken Comments Blood Pressure 122/67 2024 10:01 AM FISHER Pulse 65 2024 10:01 AM FISHER Temperature 36.7 C (98 F) 2024 10:01 AM FISHER Respiratory Rate 16 2024 10:0 1 AM FISHER Oxygen Saturation 96% 2024 10: 01 AM FISHER Inhaled Oxygen Concentration - - Weight 109.4 kg (241 lb 3.2 oz) 024 10:01 AM FISHER Height 177.8 cm (5' 10) 03/13/2024 11: 48 AM FISHER Body Mass Index 34.61 03/13/2024 11:48 AM FISHER Plan of Treatment Upcoming Encounters Date Type Department Care Team (Late st Contact Info) Description 02/05/2025 11:30 AM CDT Office Visit [facility] Oncology and Hematology - [place] [address] [facility] [address] [place] [address] Aman Dowling MD [address] [facility] [address] [place] [address] Health Maintenance Due Date Last Done Comments Pre-Diabetes and Diabetes Screening 1955 DTAP/TDAP/TD VACCINES (1 - Tdap) 1976 PNEUMOCOCCAL VACCINE 50+ YEARS (1 of 2 - PCV) 04/15/19 76 Traditional Medicare (ACO) Annual Wellness Visit 04/15 FIT-DNA Q 3 years 2002 FIT/FOBT Q 1 year 2002 Flex Sig/CT Colonography Q 5 years 2002 ZOSTER VACCINE (1 of 2) 2007 RSV VACCINE (60+ or ) (1 - Risk 60-74 years 1-dose series) 2017 INFLUENZA VACCINE (#1) 2024 01/23/2019 COLORECTAL SCREENING 09/05/2033 09/06/2023 Colorectal Cancer Screening 09/05/2033 Procedures Procedure Name Priority Date/Time Associated Diagnosis Comments VITAMIN B12 AND FOLATE Routine 02/01/2025 2:12 PM CDT Chronic anemia IRON, TIBC, AND PERCENT SATURATION Routine 02/01/2025 2:12 PM CDT Chronic anemia FERRITIN Routine 02/01/2025 2:12 PM CDT Chronic anemia from Last 3 Months Results * (ABNORMAL) VITAMIN B12 AND FOLATE (02/01/2025 2:12 PM CDT) VITAMIN B12 >2000(H) 200 - 1100 pg/mL [facility] FOLATE, SERUM >24.0 ng/mL [facility] Comment: Reference Range Low: <3.4 Borderline: 3.4-5.4 Normal: >5.4 Test Performed at: [facility] [address] [place] [address] Gala Elias MD Blood 02/01/2025 2:12 PM CDT 02/01/2025 2:12 PM CDT us Aman Dowling MD CHEMISTRY ORDERABLES Final Resu lt [facility] [phone] [facility] [address] [place] [address] * IRON, TIBC, AND PERCENT SATURATION (02/01/2025 2:12 PM CDT) IRON 87 50 - 180 mcg/dL [facility] TIBC 263 250 - 425 mcg/dL (calc) [facility] IRON % SATURATION 33 20 - 48 % (calc) [facility] Comment: Test Performed at: [facility] [address] [place] [address] Gala Elias MD Blood 02/01/2025 2:12 PM CDT 02/01/2025 2:12 PM CDT Aman Dowling MD CHEMISTRY ORDERABLES Final Resu lt [facility] [phone] [facility] [address] [place] [address] * FERRITIN (02/01/2025 2:12 PM CDT) FERRITIN 57 24 - 380 ng/mL [facility] Comment: Test Performed at: [facility] [address] [place] [address] Gala Elias MD Blood 02/01/2025 2:12 PM CDT 02/01/2025 2:12 PM CDT Aman Dowling MD CHEMISTRY ORDERABLES Final Resu lt Performing Organization Address City[facility] Co de Phone Number [facility] [phone] [facility] [address] [place] [address] from Last 3 Months Insurance MEDICARE PART A AND B [facility] Care Teams Sheep Or Calf Grader Relationship Specialty Start Date End Date Miguel Balbuena MD [address] [place] [address] PCP - General Family Practice 03/05/24
--- OUTSIDE RECORDS SUMMARY | 2025-02-05 11:18 | XMS_ITS | Patient Health Record ---
Author Organization [employer] Address [address] [facility] [address] [place] [address] Care Team Providers Care Roller Presser Operator Name Role Phone Miguel Balbuena MD Primary Care Provider Unavailabl e Reason For Referral No Information Medications Medication SIG (Take, Route, Fr equency, Duration) Notes Start Date End Date Status Suflave 178.7 GM ML Orally twice a day for 1 days 07/18/2023 Active Problems Problem Type SNOMED Code ICD Code Onset Dates Problem Status W/U Status Risk Notes Problem [id number] History of colon polyps (Z86.010) Active confirmed Plan Of Treatment No Information Insurance Providers Payer Name Payer Address Payer Phone Subscriber Number Group Number Insured Name Patient Relationship to Insured Coverage Start Date Coverage End Date Medicare E2 [address] [place] [address] [id number] Frank Stevens Self - patient is the insured [employer] Medicare Supplement [address] [place] [id number] [id number] Frank Stevens Self - patient is the insured Medical (General) History Medical History History ICD Code Sleep Apnea Migraine Headaches COPD Hypertension Hearing Loss Colon Polyps Ulcers Pancreatitis Hemorrhoids Surgical History Surgery Date(Month/Year) Cholecystectomy Sinus Surgery Back Surgery Cataract Surgery
--- OUTSIDE RECORDS SUMMARY | 2025-02-05 11:18 | XMS_ITS | Encounter Summary ---
Author Organization [facility] Address [address] [place] [address] Phone Care Team Providers Care Farm Loan Representative Name Role Phone Don Barrios MD Primary Care Provider [phone] Sudhir Grimm MD Unavailable [phone] Miguel Balbuena MD Primary Care Provider [phone] Encounter Details Date Type Department Care Team (Late st Contact Info) Description 01/26/2022 Orders Only [facility] Scanning, Provider Social History Tobacco Use Types Packs/Day Years Used Date Smoking Tobacco: Former Cigars Smokeless Tobacco: Never Comments:cigar smoker 3-4 ti mes per year Alcohol Use Standard Drinks/Week Comments Yes 0 (1 standard drink = 0.6 oz pur e alcohol) occasionally PHQ-2 Answer Date Recorded PHQ-2 Score 2 05/26/2019 Sex and Gender Information Value Date Recorded Sex Assigned at Not on file Legal Sex Male 9:15 PM RECREATION ADVISER Gender Identity Not on file Sexual Orientation Not on file Occupation Industry Job Start Date Job End Date Retired Not on file Not on file Not on file documented as of this encounter Plan of Treatment Not on file documented as of this encounter Procedures Procedure Name Priority Date/Time Associated Diagnosis Comments SCAN - RADIOLOGY/IMAGING 01/26/2022 documented in this encounter Results * SCAN - RADIOLOGY/IMAGING (01/26/2022) Anatomical Region Laterality Modality Other us Provider Scanning Final Result documented in this encounter Visit Diagnoses Not on filedocumented in this encounter Care Teams Farm Loan Representative Relationship Specialty Start Date End Date Don Barrios MD [address] [place] [address] PCP - General Family Medicine 05/26/19 03/20/23 Miguel Balbuena MD [address] [place] [address] PCP - General Family Medicine 03/21/23 Sudhir Grimm MD [address] [facility] [address] Consulting Physician Cardiovascular Disease 01/30/22 documented as of this encounter
--- OUTSIDE RECORDS SUMMARY | 2025-02-05 11:18 | XMS_ITS | Encounter Summary ---
Author Organization [facility] Address [address] [place] [address] Phone Care Team Providers Care Network Desktop Support Specialist Name Role Phone Don Barrios MD Primary Care Provider [phone] Sudhir Grimm MD Unavailable [phone] Miguel Balbuena MD Primary Care Provider [phone] Encounter Details Date Type Department Care Team (Late st Contact Info) Description 06/28/2022 Orders Only [facility] Scanning, [...] on file Legal Sex Male 9: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 TECHNICIAN Gender Identity Not on file Sexual Orientation Not on file Occupation Industry Job Start Date Job End Date Retired Not on file Not on file Not on file documented as of this encounter Plan of Treatment Not on file documented as of this encounter Procedures Procedure Name Priority Date/Time Associated Diagnosis Comments SCAN - RADIOLOGY/IMAGING 06/28/2022 documented in this encounter Results * SCAN - RADIOLOGY/IMAGING (06/28/2022) Anatomical Region Laterality Modality Other us Provider Scanning Final Result documented in this encounter Visit Diagnoses Not on filedocumented in this encounter Care Teams Network Desktop Support Specialist Relationship Specialty Start Date End Date Don Barrios MD [address] [place] [address] PCP - General Family Medicine 05/26/19 03/20/23 Miguel Balbuena MD [address] [place] [address] PCP - General Family Medicine 03/21/23 Sudhir Grimm MD [address] [place] [address] Consulting Physician Cardiovascular Disease 01/30/22 documented as of this encounter
--- OUTSIDE RECORDS SUMMARY | 2025-02-05 11:18 | XMS_ITS | Encounter Summary ---
Author Organization [facility] [employer] [facility] Address [address] [place] [address] Care Team Providers Care Progress Clerk Name Role Phone Miguel Balbuena MD Primary Care Provider [phone] Reason for Visit * Reason Onset Date Comments labs for appt 02/04/2025 Encounter Details Date Type Department Care Team (Late st Contact Info) Description 02/04/2025 Telephone [facility] Oncology and Hematology - [place] [address] [facility] [address] [place] [address] Aman Dowling MD [address] [facility] [address] [place] [address] labs for appt Social History Tobacco Use Types Packs/Day Years Used Date Smoking Tobacco: Never Alcohol Use Standard Drinks/Week Comments Not Asked 0 (1 standard drink = 0.6 oz pure alcohol) Ocasionally once a month a couple drinks Sex and Gender Information Value Date Recorded Sex Assigned at Not on file Legal Sex Male 11:38 AM CDT Gender Identity Not on file Sexual Orientation Not on file documented as of this encounter Miscellaneous Notes * Telephone Encounter - Chari Teague - 02/04/2025 9:18 AM CDT LVM for patient regarding labs for appointment tomorrow. Looks like patient had labs done at [facility] but they did not draw a CBC. I left in the message that patient could come in 30 minutes prior to his appointment and get that lab drawn. documented in this encounter Plan of Treatment Upcoming Encounters Date Type Department Care Team (Late st Contact Info) Description 02/05/2025 11:30 AM CDT Office Visit [facility] Oncology and Hematology - [place] [address] [facility] [address] [place] [address] Aman Dowling MD [address] [facility] [address] [place] [address] documented as of this encounter Visit Diagnoses Not on filedocumented in this encounter Care Teams Progress Clerk Relationship Specialty Start Date End Date Miguel Balbuena MD [address] [place] [id number] PCP - General Family Practice 03/05/24 documented as of this encounter
--- OUTSIDE RECORDS SUMMARY | 2025-02-05 11:18 | XMS_ITS | Encounter Summary ---
Author Organization [facility] Address [address] [place] [address] Phone Care Team Providers Care Supervisor Quality Control Name Role Phone Don Barrios MD Primary Care Provider [phone] Sudhir Grimm MD Unavailable [phone] Miguel Balbuena MD Primary Care Provider [phone] Encounter Details Date Type Department Care Team (Late st Contact Info) Description 06/24/2020 Orders Only [facility] Scanning, [...] on file Legal Sex Male 9:15 PM DEPARTMENT HELPER Gender Identity Not on file Sexual Orientation Not on file Occupation Industry Job Start Date Job End Date Retired Not on file Not on file Not on file documented as of this encounter Plan of Treatment Not on file documented as of this encounter Procedures Procedure Name Priority Date/Time Associated Diagnosis Comments PULMONARY - RESULT SCAN 06/24/2020 documented in this encounter Results * PULMONARY - RESULT SCAN (06/24/2020) Anatomical Region Laterality Modality Other us Provider Scanning Final Result documented in this encounter Visit Diagnoses Not on filedocumented in this encounter Care Teams Supervisor Quality Control Relationship Specialty Start Date End Date Don Barrios MD [address] [place] [address] PCP - General Family Medicine 05/26/19 03/20/23 Miguel Balbuena MD [address] [place] [address] PCP - General Family Medicine 03/21/23 Sudhir Grimm MD [address] [place] [address] Consulting Physician Cardiovascular Disease 01/30/22 documented as of this encounter
--- OUTSIDE RECORDS SUMMARY | 2025-02-05 11:18 | XMS_ITS | Encounter Summary ---
Author Organization 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 UTILITY WORKER Gender Identity Not on file Sexual Orientation Not on file Occupation Industry Job Start Date Job End Date Retired Not on file Not on file Not on file documented as of this encounter Plan of Treatment Not on file documented as of this encounter Procedures Procedure Name Priority Date/Time Associated Diagnosis Comments SCAN - RADIOLOGY/IMAGING 10/09/2022 documented in this encounter Results * SCAN - RADIOLOGY/IMAGING (10/09/2022) Anatomical Region Laterality Modality Other us Provider Scanning Final Result documented in this encounter Visit Diagnoses Not on filedocumented in this encounter Care Teams Apprentice Technician Relationship Specialty Start Date End Date Don Barrios MD [address] [place] [address] PCP - General Family Medicine 05/26/19 03/20/23 Miguel Balbuena MD [address] [place] [address] PCP - General Family Medicine 03/21/23 Sudhir Grimm MD [address] [place] [address] Consulting Physician Cardiovascular Disease 01/30/22 documented as of this encounter
[2025-02-05 11:25] LABS: Hematocrit 48.4 % (42.0-52.0); Hemoglobin 16.6 g/dL (14.0-18.0); Mean Corpuscular HGB Conc 34.3 g/dl (32-36); Mean Corpuscular Hemoglobin 32.6 pg (26-34); Mean Corpuscular Volume 95.1 fl (80-100); Platelet Count Result 141 k/mm3 (150-375); Red Blood Count 5.09 M/mm3 (4.6-6.20); White Blood Count 8.1 K/mm3 (4.5-10.0)
== END 2025-02-05 11:15 | disposition home or self-care (01) ==
LOC: ANHLAB 11:15
PROVIDERS: PCP Family Medicine; Visit Provider Internal Medicine Hematology & Oncology
DX: D64.9 Anemia, unspecified (principal)
CPT/HCPCS: 36415; 85027